=== PATIENT | male | born 2005 | race Two or more races ===

== ENCOUNTER 2025-08-02 15:32 | Outpatient (CLI) | payer OTHER, SELFPAY ==
--- NOTE | ~2025-08-02 | XR_ITS ---
EXAMINATION: XR ankle RT 2V, 08/02/2025 16:18 CDT HISTORY: PAIN COMPARISON: No comparisons available. Findings: No acute fracture or malalignment. No significant degenerative changes. Soft tissues unremarkable. Impression: No acute fracture or malalignment. Reviewed, dictated and finalized at location P. Impression: No acute fracture or malalignment.
--- NOTE | ~2025-08-02 | XR_ITS ---
EXAMINATION: XR tibia fibula RT 2V, 08/02/2025 16:18 CDT HISTORY: PAIN COMPARISON: No comparisons available. Findings: No acute fracture or malalignment. No significant degenerative changes. Soft tissues unremarkable. Impression: No acute fracture or malalignment. Reviewed, dictated and finalized at location P. Impression: No acute fracture or malalignment.
== END 2025-08-02 15:33 | disposition home or self-care (01) ==
PROVIDERS: PCP Nurse Practitioner; Visit Provider Nurse Practitioner
DX: M25.571 Pain in right ankle and joints of right foot (principal)
CPT/HCPCS: 73590; 73600